=== PATIENT | female | born 1995 | race Two or more races ===

== ENCOUNTER → 2016-11-21 | Outpatient (CLI) | payer OTHER ==
[2016-03-20 14:10] VITALS: BP 120/69
[~2016-11-21] MED LIST: ACET-704 PO; BUTA1CAP29 PO; IBUP-1060 PO; PROM25TA10 PO; RANI150C PO
--- NOTE | 2016-11-21 08:50 | RAD ---
Right upper quadrant abdominal ultrasound History: Cholelithiasis. Comparison: None. Technique: Transabdominal ultrasound images are obtained. Findings: Visualized pancreas is unremarkable. Liver is normal in echogenicity. No focal hepatic masses are identified. Right hepatic lobe measures 15.6 cm in length. Gallbladder appears contracted around gallstones (wall echo shadow sign). Gallbladder wall is apparently thickened at 6 mm. No pericholecystic fluid is identified. Common bile duct measures normally at 2 mm in diameter. The right kidney measures 10.1 cm in length and is without evidence of obstruction or stone. Visualized portions of the IVC have normal caliber. Impression: 1. Gallbladder appears contracted around gallstones with evidence of gallbladder wall thickening. This finding can be seen in the setting of chronic cholecystitis. Recommend clinical correlation.
== END | disposition home or self-care (01) ==
LOC: US 06:52
PROVIDERS: ATTEND Specialist
DX: K80.20 Calculus of gallbladder without cholecystitis without obstruction (principal); K81.1 Chronic cholecystitis
CPT/HCPCS: 76705

== ENCOUNTER 2016-12-04 07:53 | Observation (INO) | payer OTHER ==
[~2016-12-04] VITALS: Ht 157.5 cm; Wt 68.0 kg
[2016-12-04] VITALS (15 sets, daily range): BP systolic 90–121; BP diastolic 52–75
[~2016-12-04 07:53] MED LIST changes: +HYDROmorphone 2 MG/ML VIAL IV PRN; +IV RINGERS,LACTATED 1000ML 1,000 ML IV SCH; +LIDOCAINE 1% 1 ML SYRINGE. ID PRN; +MORPHINE SULFATE 2 MG/ML DISP.SYRIN. IV PRN; +ONDANSETRON PF 4 MG/2 ML VIAL. IV PRN; +PROCHLORPERAZINE 10 MG/2 ML VIAL. IV PRN; +fentaNYL PF VIAL 100 MCG/2 ML VIAL IV PRN
[2016-12-04] MEDS ORDERED: FAMOTIDINE 20 MG/2 ML VIAL ONE (08:03)
[2016-12-04] MEDS ORDERED: fentaNYL PF VIAL 100 MCG/2 ML VIAL ONE (08:03)
[2016-12-04] MEDS ORDERED: ONDANSETRON PF 4 MG/2 ML VIAL. ONE (08:03)
[2016-12-04] MEDS ORDERED: PROPOFOL 20 ML IV ONE (08:03)
[2016-12-04] MEDS ORDERED: DEXAMETHASONE SOD PHOS 20 MG/5 ML VIAL. ONE (08:03)
[2016-12-04] MEDS ORDERED: MIDAZOLAM HCL/PF 2 MG/2 ML VIAL. ONE (08:03)
[2016-12-04] MEDS ORDERED: SCOPOLAMINE 1.5MG PATCH. TD ONE (08:30)
[2016-12-04 08:48] LABS: CALCIUM 8.8 mg/dL (8.5-10.1); CREATININE 0.7 mg/dL (0.6-1.0); GFR 103.7; POTASSIUM 3.3 mmol/L (3.5-5.1)
[2016-12-04 08:53] LABS: PROTHROMBIN TIME PATIENT 12.7 SEC (11.7-14.0)
[2016-12-04 08:54] LABS: ALBUMIN 3.6 g/dL (3.4-5.0); ALBUMIN/GLOBULIN RATIO 0.9 (1.0-1.7); TOTAL BILIRUBIN 0.7 mg/dL (0.2-1.0); TOTAL PROTEIN 7.8 g/dL (6.4-8.2)
[2016-12-04] MEDS ORDERED: BUPIVACAINE-EPI 0.25%-1:200000 MPF 30 ML VIAL. ONE ×2 (08:59→11:40)
[2016-12-04] MEDS ORDERED: IOHEXOL 300 MG/ML 50 ML VIAL. ONE (08:59)
[2016-12-04 09:02] LABS: BASO % 1 % (0-3); EOS % 2 % (0-3); HEMATOCRIT 37.6 % (36.0-47.0); HEMOGLOBIN 12.7 g/dL (12.0-15.5); LYMPH # 1.6 x10^3/uL (1.0-4.8); LYMPH % 30 % (24-48); MEAN CORPUSCULAR HEMOGLOBIN 27 pg (25-35); MEAN CORPUSCULAR HGB CONC 34 g/dL (31-37); MEAN CORPUSCULAR VOLUME 79 fL (79-100); MONO % 11 % (0-9); NEUT % 57 % (31-73); PLATELET COUNT 230 x10^3/uL (140-400); RED BLOOD COUNT 4.76 x10^6/uL (3.50-5.40); RED CELL DISTRIBUTION WIDTH 14.9 % (11.5-14.5); WHITE BLOOD COUNT 5.3 x10^3/uL (4.0-11.0)
[2016-12-04] MEDS ORDERED: VECURONIUM BOLUS 10 MG VIAL. IV ONE (09:10)
--- NOTE | 2016-12-04 09:29 | PDOC ---
SURGICAL PROGRESS NOTE Subjective Op Note: Surgeon......................................Everette Pre op diag.................................chronic cholecystitis ad cholelithiasis Post op diag................................same Anesthesia.................................general Procedure...................................lap des with grams Drains........................................none Blood loss..................................20cc Fluids........................................see anesthesia sheet Condition...................................satisfactory Vital Signs Vital Signs Date Time Temp Pulse Resp B/P (MAP) Pulse Ox O2 Delivery O2 Flow Rate FiO2 12/04/16 08:21 98.0 110 18 129/83 99 Room Air 98.0 Labs Laboratory Tests Test 12/04/16 08:25 White Blood Count 5.3 x10^3/uL (4.0-11.0) Red Blood Count 4.76 x10^6/uL (3.50-5.40) Hemoglobin 12.7 g/dL (12.0-15.5) Hematocrit 37.6 % (36.0-47.0) Mean Corpuscular Volume 79 fL (79-100) Mean Corpuscular Hemoglobin 27 pg (25-35) Mean Corpuscular Hemoglobin Concent 34 g/dL (31-37) Red Cell Distribution Width 14.9 % (11.5-14.5) Platelet Count 230 x10^3/uL (140-400) Neutrophils (%) (Auto) 57 % (31-73) Lymphocytes (%) (Auto) 30 % (24-48) Monocytes (%) (Auto) 11 % (0-9) Eosinophils (%) (Auto) 2 % (0-3) Basophils (%) (Auto) 1 % (0-3) Neutrophils # (Auto) 3.0 x10^3uL (1.8-7.7) Lymphocytes # (Auto) 1.6 x10^3/uL (1.0-4.8) Monocytes # (Auto) 0.6 x10^3/uL (0.0-1.1) Eosinophils # (Auto) 0.1 x10^3/uL (0.0-0.7) Basophils # (Auto) 0.0 x10^3/uL (0.0-0.2) Prothrombin Time 12.7 SEC (11.7-14.0) Prothromb Time International Ratio 1.0 (0.8-1.1) Activated Partial Thromboplast Time 29 SEC (24-38) Sodium Level 138 mmol/L (136-145) Potassium Level 3.3 mmol/L (3.5-5.1) Chloride Level 104 mmol/L (98-107) Carbon Dioxide Level 25 mmol/L (21-32) Anion Gap 9 (6-14) Blood Urea Nitrogen 11 mg/dL (7-20) Creatinine 0.7 mg/dL (0.6-1.0) Estimated GFR (Cockcroft-Gault) 103.7 BUN/Creatinine Ratio 16 (6-20) Glucose Level 104 mg/dL (70-99) Calcium Level 8.8 mg/dL (8.5-10.1) Total Bilirubin 0.7 mg/dL (0.2-1.0) Aspartate Amino Transf (AST/SGOT) 14 U/L (15-37) Alanine Aminotransferase (ALT/SGPT) 15 U/L (14-59) Alkaline Phosphatase 82 U/L (46-116) Total Protein 7.8 g/dL (6.4-8.2) Albumin 3.6 g/dL (3.4-5.0) Albumin/Globulin Ratio 0.9 (1.0-1.7) Laboratory Tests Test 12/04/16 08:25 White Blood Count 5.3 x10^3/uL (4.0-11.0) Red Blood Count 4.76 x10^6/uL (3.50-5.40) Hemoglobin 12.7 g/dL (12.0-15.5) Hematocrit 37.6 % (36.0-47.0) Mean Corpuscular Volume 79 fL (79-100) Mean Corpuscular Hemoglobin 27 pg (25-35) Mean Corpuscular Hemoglobin Concent 34 g/dL (31-37) Red Cell Distribution Width 14.9 % (11.5-14.5) Platelet Count 230 x10^3/uL (140-400) Neutrophils (%) (Auto) 57 % (31-73) Lymphocytes (%) (Auto) 30 % (24-48) Monocytes (%) (Auto) 11 % (0-9) Eosinophils (%) (Auto) 2 % (0-3) Basophils (%) (Auto) 1 % (0-3) Neutrophils # (Auto) 3.0 x10^3uL (1.8-7.7) Lymphocytes # (Auto) 1.6 x10^3/uL (1.0-4.8) Monocytes # (Auto) 0.6 x10^3/uL (0.0-1.1) Eosinophils # (Auto) 0.1 x10^3/uL (0.0-0.7) Basophils # (Auto) 0.0 x10^3/uL (0.0-0.2) Prothrombin Time 12.7 SEC (11.7-14.0) Prothromb Time International Ratio 1.0 (0.8-1.1) Activated Partial Thromboplast Time 29 SEC (24-38) Sodium Level 138 mmol/L (136-145) Potassium Level 3.3 mmol/L (3.5-5.1) Chloride Level 104 mmol/L (98-107) Carbon Dioxide Level 25 mmol/L (21-32) Anion Gap 9 (6-14) Blood Urea Nitrogen 11 mg/dL (7-20) Creatinine 0.7 mg/dL (0.6-1.0) Estimated GFR (Cockcroft-Gault) 103.7 BUN/Creatinine Ratio 16 (6-20) Glucose Level 104 mg/dL (70-99) Calcium Level 8.8 mg/dL (8.5-10.1) Total Bilirubin 0.7 mg/dL (0.2-1.0) Aspartate Amino Transf (AST/SGOT) 14 U/L (15-37) Alanine Aminotransferase (ALT/SGPT) 15 U/L (14-59) Alkaline Phosphatase 82 U/L (46-116) Total Protein 7.8 g/dL (6.4-8.2) Albumin 3.6 g/dL (3.4-5.0) Albumin/Globulin Ratio 0.9 (1.0-1.7) ANGELA BARRERA MD December 04, 2016 09:29
--- NOTE | 2016-12-04 09:43 | HP ---
ADMIT DATE: 11/21/2016 REFERRING PHYSICIAN: Dr. Soledad Hart. HISTORY OF PRESENT ILLNESS: The patient is referred by Dr. Hart because of on and off right upper quadrant pain. This has because worse lately and she was scheduled for surgery later this month, but wanted to move it up. The patient was having more and more pain on and off. This is in the right upper quadrant with episodes of nausea with bloating and right upper quadrant pain. She had been to the Emergency Room about 6-7 months ago and found to have gallstones. There was no evidence of acute cholecystitis at that time. She has just been having these problems and was sent to me for evaluation for possible cholecystectomy. PAST MEDICAL HISTORY: Shows normal childhood diseases. She has no hypertension cancer, asthma, or diabetes and did have an appendectomy about 10 years ago and has had no other abdominal surgery to her knowledge. ALLERGIES: She has no allergies. MEDICATIONS: She takes no medicine. FAMILY HISTORY: Positive, I think her father had gallbladder problems with cholelithiasis and also was found to have liver cancer. No other gallbladder history in the family. SOCIAL HISTORY: She does not smoke, drink, or use illicit drugs. She is and has 2 children, 1 and 5 years of age. PHYSICAL EXAMINATION: GENERAL: Shows a slightly obese female, in no acute distress. HEAD, EYES, NOSE, AND THROAT: Grossly normal. LUNGS: The chest was clear bilaterally to auscultation. CARDIAC: Showed no murmurs, heaves, friction rubs or thrills and had a rate of about 70 beats per minute, was regular. ABDOMEN: Soft, scar of previous surgery was noted. There were no other abnormalities, no organomegaly, masses, tenderness, or other problems at this point. MUSCULOSKELETAL: Pelvic examination was not done. EXTREMITIES: Grossly normal. IMPRESSION: 1. Chronic cholecystitis and cholelithiasis. 2. Post-appendectomy, about 10 years. ANGELA BARRERA MD DR: CHIQUITA/bishnu JOB#: [id number] / [id number] MURIEL
[2016-12-04 09:55] LABS: NEG OBC UR NEG; POS OBC UR POS
--- NOTE | 2016-12-04 10:39 | RAD ---
Exam performed: Intraoperative cholangiogram. Indication: Laparoscopic cholecystectomy. Date of Service:12/04/16 Fluroscopic Time: [ 18 seconds ] Discussion: 5 intraoperative C-arm radiographic images are obtained during laparoscopic cholecystectomy. The images demonstrate contrast opacification of the common bile duct without filling defects. There is free spillage of contrast through the distal end into the duodenum. Impression: 1. Intraoperative cholangiogram demonstrates no evidence of filling defect or obstruction.
[2016-12-04] MEDS ORDERED: KETOROLAC 30 MG/ML INJ FOR OR. INJ ONE (11:36)
[2016-12-04] MEDS ORDERED: oxyCODONE/APAP 5/325 1 TAB TABLET PO PRN (12:30)
[2016-12-04] MEDS ORDERED: MAGNESIUM HYDROXIDE 2,400 MG/30 ML ORAL.SUSP. PO PRN (12:30)
[2016-12-04] MEDS ORDERED: 0.9 % SODIUM CHLORIDE 10 ML DISP.SYRIN. IV PRN (12:30)
[2016-12-04] MEDS ORDERED: ONDANSETRON PF 4 MG/2 ML VIAL. IV PRN (12:30)
[2016-12-04] MEDS: fentaNYL PF VIAL 100 MCG/2 ML VIAL IV PRN ×4 (12:40→13:11)
[2016-12-04] MEDS: POTASSIUM CL 20MEQ-0.45% NACL 1,000 ML IV SCH (17:27)
[2016-12-04] MEDS: FAMOTIDINE 20 MG/2 ML VIAL IVP SCH (21:44)
[2016-12-05 00:01] VITALS: BP 93/71
[2016-12-05 02:25] VITALS: BP 99/67
[2016-12-05] MEDS: POTASSIUM CL 20MEQ-0.45% NACL 1,000 ML IV SCH ×2 (03:15→09:30)
[2016-12-05 05:00] VITALS: BP 93/74
--- NOTE | 2016-12-05 05:55 | OP ---
DATE OF SURGERY: SURGEON: Dr. Ramin Barrera. PREOPERATIVE DIAGNOSIS: Chronic cholecystitis and cholelithiasis. POSTOPERATIVE DIAGNOSIS: Chronic cholecystitis and cholelithiasis. ANESTHESIA: General. PROCEDURE: Laparoscopic cholecystectomy with operative cholangiogram. TECHNIQUE: Under general anesthesia, the patient was properly prepped and draped in routine fashion. The patient had had previous right abdominal surgery from an appendectomy, and as such, we were reluctant to place catheters in that area without seeing that there was nothing attached to the abdominal wall. As such in the left upper quadrant, we made a small incision about a quarter of an inch in length, pulled up with towel clips and then passed a Veress needle into the peritoneal cavity. We then insufflated the abdomen up to 16, passed a 5 mm trocar there and then placed 5 mm camera. Luckily, there was nothing adherent to the anterior abdominal wall, and as such, in the infraumbilical area we made a small incision about a half inch in length and then passed a 10 and 11 mm trocar there making certain not to injure any intraabdominal contents. We removed the left upper quadrant catheter. A 10 mm camera was placed in the infraumbilical port and then we placed a 5 mm port just to the right of the falciform ligament in the epigastrium and then one in the right upper quadrant where she had had a previous port placed going through the same incision. We also then placed a port lateral in the abdomen, all making certain not to injure any intraabdominal contents. The patient was placed in reverse Trendelenburg left side down, and then the fundus of the gallbladder was grasped with the right lateral grasper, pushed up toward the right shoulder. There were some adhesions. These were pulled away. We grabbed the ampulla of the gallbladder with right upper quadrant grasper and then proceeded with right angle to dissect the cystic duct out. There was fair amount of fibrosis there, and we slowly went around it taking our time. The cystic artery was anterior to this and almost over it. We did go under this and around the cystic duct and isolated it. We then clipped the cystic duct well up on the gallbladder. We then made a small incision in the cystic duct close to the gallbladder and through a needle passed a catheter for the cholangiogram. We then passed this catheter after all the air was taken out of it, and we then passed it into the cystic duct, clipped it in place. We got cholangiograms, and the dye flowed freely into the duodenum. There was no evidence of obstruction, and the radiologist said it was normal. We then removed the clip on the catheter and slowly removed the catheter and then clipped the cystic duct twice on the patient's side close to the opening making certain not to be close to the common duct. We then divided this and then encircled the cystic artery, clipped it three times on the patient's side and once on the gallbladder side and divided it. We then shelled the gallbladder out of the gallbladder fossa. This was somewhat difficult part as there was some reaction there. We used a Harmonic scalpel and slowly took our time and slowly removed it from the gallbladder fossa. Before we had completely removed it, we looked at the gallbladder fossa making certain there were no bile leaks or injuries or bleeding, and there were not, and the gallbladder was amputated. It was placed in the basket placed through the umbilical port. A 5 mm camera was placed in the epigastric port. This was closed. We could not remove the gallbladder and so we had to divide the fascia about a quarter of an inch inferior to this in the midline, and then the gallbladder came out. She had had previous laparoscopic surgery and therefore has some scar at the infraumbilical area. We used a #1 Prolene suture ____ to approximate the fascia here. We then used the camera to make certain we had not injured any intraabdominal contents, and nothing was adherent to this portion of the surgery. The gallbladder has been removed. The fascia having been closed in the infraumbilical port, we then inspected the area. There was no further bleeding. Blood was aspirated from the lateral liver edge, and then all the CO2 was aspirated from the abdomen. The trocars were then removed, and all was well. The resultant defects were irrigated with saline, and the subcutaneous was approximated with 4-0 Vicryl, and the skin was closed in all locations using a subcuticular 5-0 Vicryl. The procedure was now terminated, and sterile dressings were applied. ESTIMATED BLOOD LOSS: The blood loss was probably about 15 mL to 20 mL. FLUIDS GIVEN: Can be obtained from the anesthesia sheet. DRAINS: No drains were used. CONDITION OF THE PATIENT: Satisfactory as she is returned to the recovery room. RAMIN BARRERA MD DR: CHIQUITA/bishnu JOB#: [id number] / [id number] MURIEL
[2016-12-05 06:08] LABS: BASO % 0 % (0-3); EOS % 1 % (0-3); HEMATOCRIT 32.8 % (36.0-47.0); LYMPH # 1.3 x10^3/uL (1.0-4.8); LYMPH % 21 % (24-48); MEAN CORPUSCULAR HEMOGLOBIN 27 pg (25-35); MEAN CORPUSCULAR HGB CONC 34 g/dL (31-37); MEAN CORPUSCULAR VOLUME 79 fL (79-100); MONO % 10 % (0-9); NEUT % 69 % (31-73); PLATELET COUNT 201 x10^3/uL (140-400); RED BLOOD COUNT 4.13 x10^6/uL (3.50-5.40); RED CELL DISTRIBUTION WIDTH 14.7 % (11.5-14.5); WHITE BLOOD COUNT 6.6 x10^3/uL (4.0-11.0)
[2016-12-05 06:24] LABS: CALCIUM 8.4 mg/dL (8.5-10.1); CREATININE 0.5 mg/dL (0.6-1.0); GFR 152.9
[2016-12-05 06:29] LABS: ALBUMIN/GLOBULIN RATIO 0.9 (1.0-1.7); TOTAL BILIRUBIN 0.6 mg/dL (0.2-1.0); TOTAL PROTEIN 6.3 g/dL (6.4-8.2)
[2016-12-05 06:47] VITALS: BP 95/59
[2016-12-05 09:06] VITALS: BP 92/58
[2016-12-05] MEDS: FAMOTIDINE 20 MG/2 ML VIAL IVP SCH (10:21)
[2016-12-05 11:00] VITALS: BP 94/66
--- NOTE | 2016-12-05 11:30 | PDOC ---
SURGICAL PROGRESS NOTE Subjective POD# 1 Doing well without vomiting and dressing intact without complication. Taking liquids without problems and abd with the normal incisional pain. Bili and alk phos normal and wbc normal.Will discharge and folow in office. Instructions given and whe will wear the binder correctly. Vital Signs Vital Signs Date Time Temp Pulse Resp B/P (MAP) Pulse Ox O2 Delivery O2 Flow Rate FiO2 12/05/16 11:00 98.5 76 20 94/66 (75) 94 Room Air 98.5 12/04/16 14:30 2.0 I&O Intake and Output 12/05/16 07:00 Intake Total 3700 ml Output Total 850 ml Balance 2850 ml Intake Oral 600 ml IV Total 3100 ml Output Urine Total 850 ml # Voids 1 Labs Laboratory Tests Test 12/04/16 08:11 12/04/16 08:25 12/05/16 05:36 Urine Test Negative (NEG) White Blood Count 5.3 x10^3/uL (4.0-11.0) 6.6 x10^3/uL (4.0-11.0) Red Blood Count 4.76 x10^6/uL (3.50-5.40) 4.13 x10^6/uL (3.50-5.40) Hemoglobin 12.7 g/dL (12.0-15.5) 11.0 g/dL (12.0-15.5) Hematocrit 37.6 % (36.0-47.0) 32.8 % (36.0-47.0) Mean Corpuscular Volume 79 fL (79-100) 79 fL (79-100) Mean Corpuscular Hemoglobin 27 pg (25-35) 27 pg (25-35) Mean Corpuscular Hemoglobin Concent 34 g/dL (31-37) 34 g/dL (31-37) Red Cell Distribution Width 14.9 % (11.5-14.5) 14.7 % (11.5-14.5) Platelet Count 230 x10^3/uL (140-400) 201 x10^3/uL (140-400) Neutrophils (%) (Auto) 57 % (31-73) 69 % (31-73) Lymphocytes (%) (Auto) 30 % (24-48) 21 % (24-48) Monocytes (%) (Auto) 11 % (0-9) 10 % (0-9) Eosinophils (%) (Auto) 2 % (0-3) 1 % (0-3) Basophils (%) (Auto) 1 % (0-3) 0 % (0-3) Neutrophils # (Auto) 3.0 x10^3uL (1.8-7.7) 4.5 x10^3uL (1.8-7.7) Lymphocytes # (Auto) 1.6 x10^3/uL (1.0-4.8) 1.3 x10^3/uL (1.0-4.8) Monocytes # (Auto) 0.6 x10^3/uL (0.0-1.1) 0.6 x10^3/uL (0.0-1.1) Eosinophils # (Auto) 0.1 x10^3/uL (0.0-0.7) 0.0 x10^3/uL (0.0-0.7) Basophils # (Auto) 0.0 x10^3/uL (0.0-0.2) 0.0 x10^3/uL (0.0-0.2) Prothrombin Time 12.7 SEC (11.7-14.0) Prothromb Time International Ratio 1.0 (0.8-1.1) Activated Partial Thromboplast Time 29 SEC (24-38) Sodium Level 138 mmol/L (136-145) 138 mmol/L (136-145) Potassium Level 3.3 mmol/L (3.5-5.1) 4.0 mmol/L (3.5-5.1) Chloride Level 104 mmol/L (98-107) 105 mmol/L (98-107) Carbon Dioxide Level 25 mmol/L (21-32) 26 mmol/L (21-32) Anion Gap 9 (6-14) 7 (6-14) Blood Urea Nitrogen 11 mg/dL (7-20) 5 mg/dL (7-20) Creatinine 0.7 mg/dL (0.6-1.0) 0.5 mg/dL (0.6-1.0) Estimated GFR (Cockcroft-Gault) 103.7 152.9 BUN/Creatinine Ratio 16 (6-20) 10 (6-20) Glucose Level 104 mg/dL (70-99) 98 mg/dL (70-99) Calcium Level 8.8 mg/dL (8.5-10.1) 8.4 mg/dL (8.5-10.1) Total Bilirubin 0.7 mg/dL (0.2-1.0) 0.6 mg/dL (0.2-1.0) Aspartate Amino Transf (AST/SGOT) 14 U/L (15-37) 123 U/L (15-37) Alanine Aminotransferase (ALT/SGPT) 15 U/L (14-59) 87 U/L (14-59) Alkaline Phosphatase 82 U/L (46-116) 93 U/L (46-116) Total Protein 7.8 g/dL (6.4-8.2) 6.3 g/dL (6.4-8.2) Albumin 3.6 g/dL (3.4-5.0) 3.0 g/dL (3.4-5.0) Albumin/Globulin Ratio 0.9 (1.0-1.7) 0.9 (1.0-1.7) Laboratory Tests Test 12/05/16 05:36 White Blood Count 6.6 x10^3/uL (4.0-11.0) Red Blood Count 4.13 x10^6/uL (3.50-5.40) Hemoglobin 11.0 g/dL (12.0-15.5) Hematocrit 32.8 % (36.0-47.0) Mean Corpuscular Volume 79 fL (79-100) Mean Corpuscular Hemoglobin 27 pg (25-35) Mean Corpuscular Hemoglobin Concent 34 g/dL (31-37) Red Cell Distribution Width 14.7 % (11.5-14.5) Platelet Count 201 x10^3/uL (140-400) Neutrophils (%) (Auto) 69 % (31-73) Lymphocytes (%) (Auto) 21 % (24-48) Monocytes (%) (Auto) 10 % (0-9) Eosinophils (%) (Auto) 1 % (0-3) Basophils (%) (Auto) 0 % (0-3) Neutrophils # (Auto) 4.5 x10^3uL (1.8-7.7) Lymphocytes # (Auto) 1.3 x10^3/uL (1.0-4.8) Monocytes # (Auto) 0.6 x10^3/uL (0.0-1.1) Eosinophils # (Auto) 0.0 x10^3/uL (0.0-0.7) Basophils # (Auto) 0.0 x10^3/uL (0.0-0.2) Sodium Level 138 mmol/L (136-145) Potassium Level 4.0 mmol/L (3.5-5.1) Chloride Level 105 mmol/L (98-107) Carbon Dioxide Level 26 mmol/L (21-32) Anion Gap 7 (6-14) Blood Urea Nitrogen 5 mg/dL (7-20) Creatinine 0.5 mg/dL (0.6-1.0) Estimated GFR (Cockcroft-Gault) 152.9 BUN/Creatinine Ratio 10 (6-20) Glucose Level 98 mg/dL (70-99) Calcium Level 8.4 mg/dL (8.5-10.1) Total Bilirubin 0.6 mg/dL (0.2-1.0) Aspartate Amino Transf (AST/SGOT) 123 U/L (15-37) Alanine Aminotransferase (ALT/SGPT) 87 U/L (14-59) Alkaline Phosphatase 93 U/L (46-116) Total Protein 6.3 g/dL (6.4-8.2) Albumin 3.0 g/dL (3.4-5.0) Albumin/Globulin Ratio 0.9 (1.0-1.7) ANGELA BARRERA MD December 05, 2016 11:30
[2016-12-05] MEDS ORDERED: OXYC-244 PO (12:22)
--- NOTE | 2016-12-05 22:20 | DS ---
DATE OF DISCHARGE: 12/05/2016 HOSPITAL COURSE: The patient, on the day of admission on 12/04/2016, had undergone for laparoscopic cholecystectomy and operative cholangiogram. Postoperatively, she has done well. She did have gallstones and has a gallstone which we gave to her because she wanted to keep them. She has done well postop, had some incisional pain, which is normal and otherwise the abdomen is negative. The wounds are healing well with the dressings being intact. No evidence of hemorrhage or other complications. She has no fever. Her white count is normal. Bilirubin is normal. as liver enzymes somewhat elevated, but this could be expected due to the trauma at the underside of the liver where the surgery was done. She was given instructions to wear the binder when she is out of bed or when she is in bed, and she will also take pain medicine, Percocet 7.5/325 one every 4 hours of p.r.n. pain and she also will take Colace and Metamucil. She will call should she have any problems, otherwise, we will see her back in the office in 2 weeks. IMPRESSION: Chronic cholecystitis and cholelithiasis. ANGELA BARRERA MD DR: CHIQUITA/bishnu JOB#: [id number] / [id number] MURIEL
--- NOTE | 2016-12-09 10:08 | PATHOLOGY ---
PATHOLOGY REPORT * * * * * * * * FINAL DIAGNOSIS: Gallbladder, cholecystectomy: - Chronic cholecystitis, mild. - Cholelithiasis. (SHLOMOM:; d/t: 12/08/16) REPORT ELECTRONICALLY SIGNED BY: Larry Gay M.D. DATE/TIME: 12/09/2016 10:07 * * * * * * * * GROSS PATHOLOGY: Received in formalin labeled "Laura Fraire, gallbladder and contents," is a 8.9 x 2.2 x 1.4 cm, previously opened gallbladder with pink-dunaway serosal surfaces. Opening the gallbladder reveals a velvety, light yin mucosa and an average wall thickness of 0.1 cm, and is filled with clear mucoid material. Calculi are present displaying a black and multifaceted appearance, and no masses are noted grossly. Parking Ramp Attendant sections from the body and fundus are submitted along with the proximal margin in cassette A1. (CAA; 12/05/2016) INITIAL CPT CODE(S): A; 36554 Professional services performed [place] [email or web address] [address] Technical services performed by [email or web address] at [address] [place] [address]. SPECIMEN(S) RECEIVED: A.Gallbladder and contents CLINICAL HISTORY: Chronic cholecystitis, cholelithiasis PATIENT: LAURA FRAIRE /AGE: 601/14/1995 (Age: 21) PATIENT #: [id number] ALT CASE #: SPECIMEN COLLECTION DATE: 12/04/2016 SPECIMEN RECEIVED DATE: 12/04/2016 [facility] - [address] [place] [address] - PHONE: [phone] * * * END OF REPORT * * *
== END 2016-12-05 12:50 | disposition home or self-care (01) ==
LOC: SURG 07:53 → 4 SOUTHEST 13:10
PROVIDERS: ADMIT Specialist; ATTEND Specialist
DX: K80.10 Calculus of gallbladder with chronic cholecystitis without obstruction (principal); Z80.0 Family history of malignant neoplasm of digestive organs
CPT/HCPCS: 36415; 47563; 74300; 80053; 81025; 85027; 85610; 85730; 96365; 96366; 96375; 96376; C1782; G0378; G0379; J0690; J1100; J1170; J1885; J2250; J2405; J2704; J3010; J7030; J7120; Q9967; S0028; 88304; J0780